=== PATIENT | male | born 1995 | race Caucasian/White ===

== ENCOUNTER 2016-04-12 17:25 | Emergency (ER) | payer SELFPAY | END 2016-04-12 20:05 | disposition home or self-care (01) | LOC: ER 17:25 | DX: S82.102A Unspecified fracture of upper end of left tibia, initial encounter for closed fracture (principal); S83.422A Sprain of lateral collateral ligament of left knee, initial encounter; X50.1XXA Overexertion from prolonged static or awkward postures, initial encounter; Y93.67 Activity, basketball; Y92.009 Unspecified place in unspecified non-institutional (private) residence as the place of occurrence of the external cause; F17.200 Nicotine dependence, unspecified, uncomplicated ==